=== PATIENT | male | born 1980 | race Caucasian/White ===

== ENCOUNTER 2017-12-08 14:27 | Emergency (ER) | payer MEDICARE ==
[~2017-12-08] VITALS: Ht 190.5 cm; Wt 86.4 kg
[~2017-12-08 14:27] MED LIST: AMOXICILLIN 50500 MG PO; AMOXICILLIN 8751 TAB PO; FLEXERIL10 MG PO; IBUPROFEN 200200 MG PO; MELOXICAM7.5 MG PO; NORCO 325 MG-51 TA1 PO; NORCO 325 MG-7.1 TAB PO; PERCOCET 325 MG1 TA4 PO; PERCOCET 7.5/321 TA1 PO; ULTRAM50 MG PO
[2017-12-08] MEDS ORDERED: NORCO 325 MG-51 TA1 PO (17:11)
[2017-12-08 17:42] VITALS: BP 124/76
== END 2017-12-08 17:25 | disposition home or self-care (01) ==
LOC: ED 14:27
DX: M25.512 Pain in left shoulder (principal); W18.49XA Other slipping, tripping and stumbling without falling, initial encounter; M50.30 Other cervical disc degeneration, unspecified cervical region
CPT/HCPCS: A4565; J1885